=== PATIENT | male | born 1995 | race African-American/Black ===

== ENCOUNTER 2021-09-11 02:00 | Emergency (ER) | payer BC, SELFPAY ==
[2021-09-11] MEDS ORDERED: Ketorolac Tromethamine 30 MG/ML VIAL ONE (02:23)
== END 2021-09-11 02:35 | disposition home or self-care (01) ==
LOC: NAV ERS 02:00
DX: K02.9 Dental caries, unspecified (principal); F17.210 Nicotine dependence, cigarettes, uncomplicated
CPT/HCPCS: 96372; 99282; J1885